=== PATIENT | female | born 1980 | race Two or more races ===

== ENCOUNTER 2022-05-01 07:09 | Day surgery (SDC) | payer OTHER ==
[~2022-05-01] VITALS: Ht 137.2 cm; Wt 49.9 kg
[~2022-05-01 07:09] MED LIST: SYNTHROID88 MCG PO
[2022-05-01] MEDS ORDERED: PERCOCET 5-3251 EACH PO (14:32)
== END 2022-05-01 18:00 | disposition home or self-care (01) ==
LOC: CIR.AMB 07:09
PROVIDERS: ATTEND Surgery
DX: C50.011 Malignant neoplasm of nipple and areola, right female breast (principal); Z20.822 Contact with and (suspected) exposure to COVID-19; Z91.013 Allergy to seafood

== ENCOUNTER 2022-11-27 07:30 | Day surgery (SDC) | payer OTHER ==
[~2022-11-27] VITALS: Ht 139.7 cm; Wt 49.9 kg
[~2022-11-27 07:30] MED LIST changes: +PERCOCET 5-3251 EACH PO; +SYNTHROID100 MCG PO
== END 2022-11-27 22:25 | disposition home or self-care (01) ==
LOC: CIR.AMB 07:30
PROVIDERS: ATTEND Surgery
DX: C50.411 Malignant neoplasm of upper-outer quadrant of right female breast (principal); N60.32 Fibrosclerosis of left breast; N60.22 Fibroadenosis of left breast; R59.0 Localized enlarged lymph nodes; R92.1 Mammographic calcification found on diagnostic imaging of breast; Z90.13 Acquired absence of bilateral breasts and nipples; Z91.040 Latex allergy status; Z91.013 Allergy to seafood; Z20.822 Contact with and (suspected) exposure to COVID-19; E03.9 Hypothyroidism, unspecified; Z80.3 Family history of malignant neoplasm of breast

== ENCOUNTER 2023-04-02 06:11 | Day surgery (SDC) | payer OTHER ==
[~2023-04-02] VITALS: Ht 139.7 cm; Wt 50.3 kg
== END 2023-04-02 15:20 | disposition home or self-care (01) ==
LOC: CIR.AMB 06:11
PROVIDERS: ATTEND Plastic Surgery
DX: C50.411 Malignant neoplasm of upper-outer quadrant of right female breast (principal); Z90.13 Acquired absence of bilateral breasts and nipples; Z80.3 Family history of malignant neoplasm of breast; Z20.822 Contact with and (suspected) exposure to COVID-19; Z91.013 Allergy to seafood; Z91.040 Latex allergy status

== ENCOUNTER 2023-10-22 07:55 | Day surgery (SDC) | payer OTHER ==
[2023-10-05 11:23] LABS: URINE APPEARANCE Clear; URINE BILIRRUBIN Negative (NEGATIVE); URINE BLOOD Large; URINE COLOR Yellow; URINE GLUCOSE Negative (NEGATIVE); URINE LEUKOCYTE Negative; URINE NITRATE Negative; URINE PROTEIN Negative (NEGATIVE); URINE UROBILINOGEN 0.2 E.U./dl
[2023-10-05 11:25] LABS: HEMATOCRIT 34.5 % (36.0-45.00); HEMOGLOBIN 12.1 g/dL (12.0-15.00); MEAN CELL VOLUME 89.1 fL (80.00-100.00); MEAN CORPUSCULAR HEMOGLOBIN 31.3 pg (27.00-32.0); MEAN CORPUSCULAR HGB CONC 35.1 g/dl (32.0-36.0); PLATELET COUNT 267 K/uL (150-450); RED BLOOD COUNT 3.87 M/uL (4.00-6.00)
[2023-10-05 11:26] LABS: RED CELL DISTRIBUTION WIDTH 23.9 % (11.5-14.5)
[2023-10-05 11:26] LABS: URINE EPITHELIAL CELLS 2.6 uL (0.0-38.8); URINE RBC 382.2 uL (0.0-20.8); URINE WBC 2.3 uL (0.0-23.2)
[2023-10-05 11:43] LABS: INR 1.05; PARTIAL THROMBOPLASTIN TIME 26.3 SECONDS (22.0-34.0)
[2023-10-05 11:47] LABS: ALBUMIN 3.6 gm/dL (3.4-5.0); BILIRUBIN TOTAL 0.61 mg/dL (0.3-1.2); CALCIUM 9.4 mg/dL (8.5-10.1); CREATININE SERUM 0.56 mg/dL (0.55-1.02); GFR 117.07; GLOBULINA 3.8 G/DL (2.4-3.5); PHOSPHOROUS 3.1 mg/dL (2.5-4.9); POTASSIUM 3.54 mEq/L (3.5-5.1); TOTAL PROTEIN 7.4 gm/dL (6.4-8.2)
[~2023-10-22] VITALS: Ht 149.9 cm; Wt 51.7 kg
[~2023-10-22 07:55] MED LIST changes: +BUPIVACAINE HCL/PF 0.5% 30ML ML ONE; +DICLOFENAC SOD100 MG PO; +NORFLEX100MG PO
[2023-10-22] MEDS ORDERED: TRAM1TAB98 PO (10:34)
[2023-10-22] MEDS ORDERED: CEFAZOLIN SODIUM 1,000 MG VIAL ONE (10:41)
[2023-10-22] MEDS ORDERED: LIDOCAINE HCL/EPINEPHRINE 20 ML VIAL IJ ONE ×2 (10:41→11:30)
[2023-10-22] MEDS ORDERED: BUPIVACAINE HCL/PF 0.5% 30ML ML ONE (10:41)
[2023-10-22] MEDS ORDERED: BUPIVACAINE HCL 250MG/50ML VIAL ONE (11:08)
[2023-10-22] MEDS ORDERED: CEFAZOLIN SODIUM 1,000 MG VIAL IV ONE (11:30)
[2023-10-22] MEDS ORDERED: BUPIVACAINE HCL 250MG/50ML VIAL IU ONE (11:30)
== END 2023-10-22 13:50 | disposition home or self-care (01) ==
LOC: CIR.AMB 07:55
PROVIDERS: ATTEND Surgery
DX: C50.011 Malignant neoplasm of nipple and areola, right female breast (principal); Z51.11 Encounter for antineoplastic chemotherapy; Z91.040 Latex allergy status; Z91.013 Allergy to seafood; Z20.822 Contact with and (suspected) exposure to COVID-19